=== PATIENT | female | born 1995 | race African-American/Black ===

== ENCOUNTER 2022-07-04 04:14 | Inpatient (IN) | payer MEDICAID ==
[2022-07-04] VITALS (46 sets, daily range): BP systolic 95–154; BP diastolic 56–601; PULSE 54–97; TEMP 97–98.1
[~2022-07-04] VITALS: Ht 170.2 cm; Wt 97.3 kg
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
[2022-07-04] MEDS ORDERED: PNV-SELECT1 TAB PO (04:59)
--- NOTE | 2022-07-04 06:10 | NUR ---
PT REQUESTING EPIDURAL. TANNA CALLED THE UNIT TO CHECK ON STATUS THIS MORNING, INFORMED HER THAT WE HAVE THIS PRIME PATIENT HERE THAT IS REQUESTING AN EPIDURAL. SHE STATES THAT SHE WILL BE IN SHORTLY. LR TO [place], ANESTHESIA ON HER WAY.
--- NOTE | 2022-07-04 06:20 | NUR ---
REPORT GIVEN TO SUBHASH BOTELLO.
--- NOTE | 2022-07-04 06:45 | NUR ---
PT SITTING UPRIGHT ON EDGE OF BED FOR EPIDURAL PLACEMENT. MUSIC EDUCATION ADJUNCT PROFESSOR AT BEDSIDE. EFM AND TOCO TRACING INTERMITTENTLY DUE TO MATERNAL POSITIONING. PULSE OX APPLIED AND BLOOD PRESSURE CYCLING Q5 MINS. TEST DOSE AT 0645. VITALS WNL, IV FLUID BOLUS INFUSING. PT TOLERATED PROCEDURE WELL.
--- NOTE | 2022-07-04 08:54 | NUR ---
0854- DR. KRISHNAN AT BEDSIDE. SVE: RIGHT-100 LEFT/0. AROM AT 0854- CLEAR FLUID NOTED.
[2022-07-04 09:46] LABS: ALBUMIN 3.1 gm/dL (3.5-5.0); BILIRUBIN,TOTAL 0.4 mg/dL (0.2-1.2); CALCIUM 9.5 mg/dL (8.4-10.2); CREATININE, serum 0.66 mg/dL (0.57-1.11); POTASSIUM 3.8 mmol/L (3.5-4.5); TOTAL PROTEIN 7.2 gm/dL (6.2-8.1)
[2022-07-04 10:06] LABS: BASO % 0.3 % (0.0-2.0); EOS # 0.1 K/mm3 (0.0-0.7); EOS % 0.8 % (0.0-4.0); GRAN # 10.2 K/mm3 (1.4-6.5); GRAN % 76.2 % (42.2-75.2); HEMATOCRIT 40.4 % (37.0-47.0); HEMOGLOBIN 13.1 g/dl (12.5-16.0); LYMPH # 1.8 K/mm3 (1.2-3.4); MEAN CELL VOLUME 74 fl (80.0-100.0); MEAN CORPUSCULAR HEMOGLOBIN 24 pg (27-31); MEAN CORPUSCULAR HGB CONC 32 g/dl (33.0-37.0); MEAN PLATELET VOLUME 12.7 fl (7.4-10.4); MONO # 1.2 K/mm3 (0.1-0.6); MONO % 8.7 % (1.7-9.3); PLATELET COUNT 285 K/mm3 (130-400); REDCELL DISTRIBUTION WIDTH-CV 14.7 % (11.5-14.5)
--- NOTE | 2022-07-04 15:06 | NUR ---
1306- TO OR WITH PT FOR FAILURE TO DESCEND. 1323- UTERINE INCISION [id number]- WEDGED IN CANAL RESULTING IN DIFFICULTY IN DELIVERING. DR. KRISHNAN REQUESTING UPWARD PRESSURE FROM THE [facility]. SUJIT RN KRISHNA PRESSURE FROM [facility] OPENING UNDER DRAP TO ASSIST IN DELIVERY. 1327- DR. JOVEL THEN ATTEMPTS PRESSURE FROM BELOW WHILE DR. AVILA DELIVERS BABY. TRANSFERED TO [facility]ER TO FOR CARE BY NURSERY RNS. 1328- SPONTANEOUS DELIVERY OF PLACENTA.
[2022-07-05 03:04] VITALS: BP 118/56; PULSE 69; TEMP 97.6
[2022-07-05 07:45] VITALS: BP 117/53; PULSE 72; TEMP 98.1
--- NOTE | 2022-07-05 08:42 | NUR ---
Initial visit; Parents thanked Complex Case Manager for offering congratulations and God's blessings for the of their son and offering "Special Blessings" for him.Complex Case Manager thanked family for choosing [facility].
[2022-07-05] MEDS ORDERED: PERCOCET 325 MG1 TA2 PO (09:04)
[2022-07-05] MEDS ORDERED: IBU800 M1 PO (09:04)
[2022-07-05 13:28] LABS: HEMATOCRIT 34.4 % (37.0-47.0); HEMOGLOBIN 11.3 g/dl (12.5-16.0); MEAN CELL VOLUME 73 fl (80.0-100.0); MEAN CORPUSCULAR HEMOGLOBIN 24 pg (27-31); MEAN CORPUSCULAR HGB CONC 33 g/dl (33.0-37.0); MEAN PLATELET VOLUME 12.6 fl (7.4-10.4); PLATELET COUNT 244 K/mm3 (130-400); RED BLOOD COUNT 4.72 M/mm3 (4.10-5.30); REDCELL DISTRIBUTION WIDTH-CV 14.4 % (11.5-14.5)
[2022-07-05 17:00] VITALS: BP 112/61; PULSE 86; TEMP 98.7
[2022-07-05 20:10] VITALS: BP 122/63; PULSE 75; TEMP 98
[2022-07-06 07:00] VITALS: BP 130/68; BP 144/91; PULSE 73; TEMP 97.6; TEMP 97.9
== END 2022-07-06 11:25 | disposition home or self-care (01) | DRG 788 ==
LOC: LDR 04:14 → LDRO 04:14 → LDR 04:18 → LDRO 04:41 → OB 15:00
PROVIDERS: ADMIT Student in an Organized Health Care Education/Training Program
PROC: 10D00Z1 Extraction of Products of Conception, Low, Open Approach (ICD-10-PCS; principal; 2022-07-04)
DX: O64.0XX0 Obstructed labor due to incomplete rotation of fetal head, not applicable or unspecified (principal); O99.824 Streptococcus B carrier state complicating childbirth; D56.3 Thalassemia minor; O77.0 Labor and delivery complicated by meconium in amniotic fluid; O99.02 Anemia complicating childbirth; Z37.0 Single live birth; Z3A.39 39 weeks gestation of pregnancy
CPT/HCPCS: J0690; J1100; J1885; J2370; J2401; J2405; J2540; J2795; J7120